=== PATIENT | male | born 1935 | race Two or more races ===

== ENCOUNTER 2025-06-01 12:06 | Emergency (ER) | payer OTHER ==
[~2025-06-01] VITALS: Ht 170.2 cm; Wt 81.6 kg
[2025-06-01] MEDS ORDERED: ACETAMINOPHEN 500 MG GEL..CAP PO ONE (13:00)
[2025-06-01] MEDS ORDERED: SODIUM CHLORIDE 0.45 % 500 ML IV ONE (13:00)
[2025-06-01 13:30] LABS: BASO % 0.3 % (0.1-1.2); EOS # 0.07 (0.04-0.54); EOS % 0.8 % (0.7-7.0); LYMPH # 1.15 (1.18-3.74); LYMPH % 13.0 % (19.3-53.1); MEAN PLATELET VOLUME 12.50 fl (9.4-12.4); MONO # 0.95 (0.24-0.82); MONO % 10.8 % (4.7-12.5); NEUT # 6.59 (1.56-6.13); NEUT % 74.6 % (34.0-71.1); RED CELL DISTRIBUTION WIDTH 12.9 % (11.6-14.4)
[2025-06-01 13:52] LABS: COVID-19 AG NEGATIVE (NEGATIVE)
[2025-06-01 14:02] LABS: URINE APPEARANCE Clear; URINE BILIRRUBIN Negative (NEGATIVE); URINE BLOOD Negative; URINE COLOR Yellow; URINE KETONE Trace (NEGATIVE); URINE LEUKOCYTE Negative; URINE NITRATE Negative; URINE PROTEIN Trace (NEGATIVE); URINE UROBILINOGEN 1.0 E.U./dl
[2025-06-01 14:05] LABS: URINE BACTERIA 14.3 uL (0.0-1933); URINE EPITHELIAL CELLS 4.6 uL (0.0-38.8); URINE RBC 7.7 uL (0.0-20.8); URINE WBC 4.3 uL (0.0-23.2)
[2025-06-01] MEDS ORDERED: DONEPEZIL HCL10 MG PO (14:09)
[2025-06-01] MEDS ORDERED: GLIMEPIRIDE4 M1 PO (14:09)
[2025-06-01] MEDS ORDERED: JANUVIA50 MG PO (14:09)
[2025-06-01] MEDS ORDERED: SIMVASTATIN10 MG PO (14:09)
[2025-06-01] MEDS ORDERED: CARBIDOPA-LEVO1 EA10 PO (14:09)
[2025-06-01] MEDS ORDERED: LOSARTAN POTASS50 MG PO (14:09)
[2025-06-01] MEDS ORDERED: GABAPENTIN100 M2 PO (14:09)
[2025-06-01 14:10] LABS: URINE CAST 0.43 uL (0.0-1.40); URINE GLUCOSE 250 MG/DL (NEGATIVE)
[2025-06-01 14:10] LABS: BUN CREA RATIO 20.0 (7.0-25.0); CREATININE SERUM 1.62 mg/dL (0.70-1.30); GFR 40.32; OSMOLALITY SERUM 300.0 MOSM/KG (275-295)
[2025-06-01] MEDS ORDERED: QUETIAPINE FUMA25 MG PO (14:10)
[2025-06-01] MEDS ORDERED: ST. JOSEPH ASPI81 M2 PO (14:10)
[2025-06-01 14:14] LABS: ALT/SGPT 13 U/L (12-78); AST/SGOT 11 U/L (15-37); LDH 170 U/L (87-241); PHOSPHOKINASE CREATININE 22 U/L (39-308)
[2025-06-01 14:24] LABS: GLUCOSE FASTING 307.0 mg/dL (65-100)
[2025-06-01 14:44] LABS: ABG PH 7.400 (7.35-7.45); ABG PO2 87.2 mmHg (80-100); BICARBONATE 25.1 mmol/l (23-25)
[2025-06-01 14:46] LABS: o2 21 %
[2025-06-01] MEDS ORDERED: INSULIN REGULAR, HUMAN 1,000 UNIT/10 ML UNITS IV ONE (19:15)
[2025-06-01] MEDS ORDERED: CEFTRIAXONE SODIUM 1,000 MG VIAL IM ONE (19:15)
[2025-06-01] MEDS ORDERED: ZITHROMAX500 MG PO (19:21)
[2025-06-01] MEDS ORDERED: CEFTRIAXONE SODIUM 1,000 MG VIAL ONE (19:24)
== END 2025-06-01 20:50 ==
LOC: ER 12:06 → EMR PED 12:06 → ER 13:44
PROVIDERS: General Practice
DX: B34.9 Viral infection, unspecified (principal); G20.A1 Parkinson's disease without dyskinesia, without mention of fluctuations; G30.8 Other Alzheimer's disease; F02.80 Dementia in other diseases classified elsewhere, unspecified severity, without behavioral disturbance, psychotic disturbance, mood disturbance, and anxiety; E05.80 Other thyrotoxicosis without thyrotoxic crisis or storm; R53.81 Other malaise; Z20.822 Contact with and (suspected) exposure to COVID-19; E11.65 Type 2 diabetes mellitus with hyperglycemia; Z79.84 Long term (current) use of oral hypoglycemic drugs
CPT/HCPCS: 36415; 71046; 82803; 96365; 96372; 99283; J0696